=== PATIENT | male | born 1970 | race Caucasian/White ===

== ENCOUNTER 2024-05-31 09:15 | Day surgery (SDC) | payer OTHER ==
[~2024-05-31 09:15] MED LIST: Midazolam 1 MG/ML 2 ML SDV ONE; Propofol 200 MG/20 ML SDV ONE; fentaNYL 100 MCG/2 ML SDV ONE
[2024-05-31] MEDS: Lactated Ringers 1,000 ML IV SCH (09:43)
[2024-05-31] MEDS: ceFAZolin 2 GM in Premix Bag 1 BAG IV ONE (11:00)
[2024-05-31] MEDS ORDERED: Propofol 200 MG/20 ML SDV ONE (11:08)
[2024-05-31] MEDS: metroNIDAZOLE/Normal Saline 500 MG in Premix Bag 1 BAG IV ONE (11:27)
[2024-05-31] MEDS: Bupivacaine 0.5% 50 ML MDV ONE (13:30)
[2024-05-31] MEDS: Lidocaine 2% Jelly 10 ML Urojet ONE (13:30)
[2024-05-31] MEDS: Lidocaine 1% with EPINEPHrine 1:100,000 50 ML MDV ONE (13:30)
== END 2024-05-31 12:45 | disposition home or self-care (01) ==
LOC: JP.SDS 09:15
PROVIDERS: ATTEND Surgery
DX: K64.8 Other hemorrhoids (principal); K64.4 Residual hemorrhoidal skin tags; I10 Essential (primary) hypertension; E78.5 Hyperlipidemia, unspecified; Z91.09 Other allergy status, other than to drugs and biological substances; Z79.899 Other long term (current) drug therapy
CPT/HCPCS: 00902-QZ; J0665; J0690; J1836; J2250; J2704; J3010; J7120